=== PATIENT | male | born 1995 | race Caucasian/White ===

== ENCOUNTER 2016-11-04 02:44 | Emergency (ER) | payer OTHER ==
[2016-11-04 03:05] VITALS: RESP 16; TEMP 99.3
[2016-11-04 04:47] VITALS: BP 116/84; PULSE 81; O2SAT 96
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
== END 2016-11-04 05:25 | disposition home or self-care (01) ==
DX: S16.1XXA Strain of muscle, fascia and tendon at neck level, initial encounter (principal); S39.92XA Unspecified injury of lower back, initial encounter; F17.200 Nicotine dependence, unspecified, uncomplicated; V47.6XXA Car passenger injured in collision with fixed or stationary object in traffic accident, initial encounter; Y92.410 Unspecified street and highway as the place of occurrence of the external cause